=== PATIENT | male | born 1955 | race African-American/Black ===

== ENCOUNTER 2019-03-13 15:34 | Inpatient (IN) | payer SELFPAY ==
[2019-03-13 15:55] VITALS: BMI 27.1
--- NOTE | 2019-03-13 15:55 | PDOC ---
Rapid Medical Evaluation Chief Complaint: Urinary Problem Time Seen by Provider: 03/13/19 15:47 Medical Evaluation: 03/13/19 15:52 I have performed a brief in-person evaluation of this patient. The patient presents with a chief complaint of: h/o HTN and HPL present with complains of 1 week h/o polyuria and polydyspsia with worsening vision. Patient report has not been taking BP meds for months due [place] Pertinent physical exam findings: A&O x 3 in NAD. SINA B/L I have ordered the following: CBC,CMP, fingerstick The patient will proceed to the ED for further evaluation. Discharge Disposition - Diagnosis Polyuria - Discharge Dispostion Condition at time of disposition: Stable - Referrals - Patient Instructions - Post Discharge Activity
[2019-03-13 16:16] LABS: BASO % 0.6 % (0-2.0); EOS % 0.8 % (0-4.5); HEMATOCRIT 46.6 % (35.4-49); HEMOGLOBIN 15.7 GM/dL (11.7-16.9); LYMPH % 17.7 % (8-40); MCH 31.2 pg (25.7-33.7); MCHC 33.7 g/dl (32.0-35.9); MEAN CELL VOLUME 92.6 fl (80-96); MEAN PLT VOLUME 10.7 fl (7.5-11.1); MONO % 5.9 % (3.8-10.2); PLATELET COUNT 241 K/MM3 (134-434); RBC 5.03 M/mm3 (4.00-5.60); RDW 12.9 % (11.9-15.9); URINE APPEARANCE CLEAR; URINE BILIRUBIN NEGATIVE (NEGATIVE); URINE COLOR YELLOW; URINE GLUCOSE (UA) 3+ (NEGATIVE); URINE KETONE TRACE (NEGATIVE); URINE LEUK ESTERASE NEGATIVE (NEGATIVE); URINE NITRITE NEGATIVE (NEGATIVE); URINE PROTEIN NEGATIVE (NEGATIVE); URINE UROBILINOGEN 0.2 mg/dL (0.2-1.0); WHITE BLOOD COUNT 6.7 K/mm3 (4.0-10.0)
[2019-03-13 17:03] LABS: ALBUMIN 3.9 g/dl (3.4-5.0); BILIRUBIN,TOTAL 0.3 mg/dL (0.2-1); BLOOD UREA NITROGEN 19.3 mg/dL (7-18); CALCIUM 8.9 mg/dL (8.5-10.1); CREATININE 1.6 mg/dL (0.55-1.3); POTASSIUM 4.5 mmol/L (3.5-5.1); TOT PROT 7.4 g/dl (6.4-8.2)
[2019-03-13] MEDS ORDERED: SODIUM CHLORIDE 1,000 ML IV STA ×3 (17:12→18:34)
[2019-03-13 17:14] LABS: PLATELET ESTIMATE ADEQUATE
[2019-03-13] MEDS ORDERED: INSULIN REGULAR HUMAN 100 UNITS/ML *VIAL IVPUSH ONE (17:14)
--- NOTE | 2019-03-13 17:23 | PDOC ---
History of Present Illness - General Chief Complaint: Urinary Problem Stated Complaint: EYE PROBLEM Time Seen by Provider: 03/13/19 15:47 History Source: Patient - History of Present Illness Timing/Duration: other Past History - Past Medical History Allergies/Adverse Reactions: Allergies Allergy/AdvReac Type Severity Reaction Status Date / Time No Known Allergies Allergy Verified 03/13/19 15:54 COPD: No HTN: Yes Hypercholesterolemia: Yes - Immunization History Immunization Up to Date: Yes - Psycho Social/Smoking Cessation Hx Smoking History: Never smoked Have you smoked in the past 12 months: No Information on smoking cessation initiated: No Hx Alcohol Use: Yes (SOCIAL) Drug/Substance Use Hx: No Review of Systems - Review of Systems Constitutional: No: Chills, Fever HEENTM: Yes: Blurred Vision. No: Eye Pain Respiratory: No: Shortness of Breath Cardiac (ROS): No: Chest Pain ABD/GI: No: Nausea, Vomiting, Abdominal cramping Endocrine: Yes: Increased Thirst, Increased Urine *Physical Exam - Vital Signs Last Vital Signs Temp Pulse Resp BP Pulse Ox 98.2 F 103 H 17 129/96 98 03/13/19 15:46 03/13/19 15:46 03/13/19 15:46 03/13/19 15:46 03/13/19 15:46 - Physical Exam General Appearance: Yes: Appropriately Dressed. No: Apparent Distress HEENT: positive: Normal Voice Neck: positive: Supple Respiratory/Chest: positive: Lungs Clear, Normal Breath Sounds. negative: Respiratory Distress Cardiovascular: positive: Regular Rate, S1, S2 Gastrointestinal/Abdominal: positive: Soft. negative: Tender Musculoskeletal: negative: CVA Tenderness Integumentary: positive: Dry, Warm Neurologic: positive: Fully Oriented, Alert, Normal Mood/Affect ED Treatment Course - LABORATORY CBC & Chemistry Diagram: 03/13/19 16:05 03/13/19 16:05 - ADDITIONAL ORDERS Additional order review: Laboratory Results 03/13/19 03/13/19 16:05 16:05 Sodium 128 L Potassium 4.5 Chloride 92 L Carbon Dioxide 22 Anion Gap 14 BUN 19.3 H Creatinine 1.6 H Est GFR (CKD-EPI)AfAm 53.10 Est GFR (CKD-EPI)NonAf 45.82 Random Glucose 843 H* Calcium 8.9 Total Bilirubin 0.3 AST 32 ALT 68 H Alkaline Phosphatase 195 H Total Protein 7.4 Albumin 3.9 Urine Color Yellow Urine Appearance Clear Urine pH 5.0 Ur Specific [place] 1.035 Urine Protein Negative Urine Glucose (UA) 3+ H Urine Ketones Trace H Urine Blood Negative Urine Nitrite Negative Urine Bilirubin Negative Urine Urobilinogen 0.2 Ur Leukocyte Esterase Negative 03/13/19 16:05 RBC 5.03 MCV 92.6 MCHC 33.7 RDW 12.9 MPV 10.7 Neutrophils % 75.0 Lymphocytes % 17.7 Monocytes % 5.9 Eosinophils % 0.8 Basophils % 0.6 Medical Decision Making - Medical Decision Making 03/13/19 17:18 63-year-old male, h/o possible hypertension but not currently on meds, here with worsening blurry vision with polydipsia and polyuria that started 2 weeks ago. Patient recently moved to [facility] and states symptoms started after he got here around [facility]. No abd pain, SOB, f/c. Patient states prior to moving in with his mother several years ago he was eating healthy but not currently See exam New onset DM BG >800 w/ NA 128 and Cr 1.6, no old numbers to compare, no gap -IVF -insulin -admit 03/13/19 18:53 Case discussed with admitting team and patient admitted Discharge - Discharge Information Problems reviewed: Yes Clinical Impression/Diagnosis: Diabetes mellitus, new onset, Blurry vision, Polydipsia, Polyuria, Creatinine elevation Condition: Fair - Admission Yes - Follow up/Referral - Patient Discharge Instructions - Post Discharge Activity
--- NOTE | 2019-03-13 19:10 | PN ---
Teaching Attending Note Name of Resident: Lonnie Prabhakar ATTENDING PHYSICIAN STATEMENT I saw and evaluated the patient. I reviewed the resident's note and discussed the case with the resident. I agree with the resident's findings and plan as documented. SUBJECTIVE: Patient is a 63 year old man with PMH of Hypertension (not on medication) presenting with worsening blurry vision, polydipsia and polyuria that started 2 weeks ago. Patient recently moved to [facility] and states symptoms started after he got here [facility]. Denies abdominal pain, fever, chills, nausea, vomiting, chest pain, headache, diarrhea or dysuria. Patient states that prior to moving in with his mother several years ago he was eating healthy but not currently. Denies tobacco, alcohol or illicit drug use. No sick contacts. Has FH of prediabetes, HTN and prostate cancer. OBJECTIVE: Alert Vital Signs Period Temp Pulse Resp BP Sys/Nicholson Pulse Ox Last 24 Hr 98.2 F 103 17 129/96 98 HEENT: No Jaundice, eye redness or discharge, PERRLA, EOMI. Normocephalic, atraumatic. External ears are normal and hearing is grossly intact. No nasal discharge. Neck: Supple, nontender. No palpable adenopathy or thyromegaly. No JVD Chest: Good effort. Clear to auscultation and percussion. Heart: Regular. No S3, rub or murmur Abdomen: Not distended, soft, nontender and no HSM. No rebound or guarding. Normal bowel sounds. Ext: Peripheral pulses intact. No leg edema. Skin: Warm and dry. No petechiae, rash or ecchymosis. Neuro: Alert. Oriented x3. CN 2-12 grossly intact. Sensation grossly intact in all four extremities and DTR are symmetric. Psych: Appropriate mood and affect. Good insight. Current Medications Generic Name Dose Route Start Last Admin Trade Name Freq PRN Reason Stop Dose Admin Heparin Sodium (Porcine) 5,000 unit 03/14/19 02:00 Heparin - SQ Q8H-IV FAWN Sodium Chloride 1,000 mls @ 100 mls/hr 03/13/19 19:30 03/13/19 19:34 Normal Saline - IV 100 mls/hr ASDIR FAWN Administration Insulin Aspart 0 vial 03/13/19 22:00 Novolog Vial Sliding Scale - SQ ACHS FAWN Protocol Insulin Detemir 18 units 03/13/19 22:00 Levemir Vial SQ HS [facility] Abnormal Lab Results 03/13/19 03/13/19 16:05 16:05 Sodium 128 L Chloride 92 L BUN 19.3 H Creatinine 1.6 H Random Glucose 843 H* ALT 68 H Alkaline Phosphatase 195 H Beta-Hydroxybutyrate 18.9 H Urine Glucose (UA) 3+ H Urine Ketones Trace H ASSESSMENT AND PLAN: 1. New onset DM - Getting insulin and IV NS. Hyponatremia likely due to hyperglycemia. Will monitor serum sodium q 6 hours to avoid a rapid rise; give IV and PO KCL. Will implement sliding scale insulin regimen. By tomorrow will start metformin 500 mg and Insulin glargine. Elevated LFTs are unexplained. Will get RUQ sonogram, HbA1c, hepatitis profile, fasting lipids, TSH and urine albumin/creatinine ratio. Provide comprehensive diabetes care with patient teaching and counseling about the importance of adherence to prescribed diabetes regimen, euglycemia, eye care and foot care. EKG shows NSR, LAD, IRBBB and LVH. 2. MARCELINO - Likely due to dehydration from osmotic diuresis. Will hydrate, monitor urine output and get kidney sonogram if azotemia persists. Avoid nephrotoxic agents such as NSAIDS, aminoglycosides, contrast dyes and certain Alternative medicine products. 3. DVT prophylaxis - Heparin 5000u sq tid. 4. Advance directives - Full code
--- NOTE | 2019-03-13 19:19 | HP ---
CHIEF COMPLAINT: blurry vision PCP: None HISTORY OF PRESENT ILLNESS: 63 y/o male PMH HTN, HLD, arthritis, and GERD c/o 2 weeks of lethargy, polyuria , polydipsia, and polyphagia. 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 The symptom that brought him to the hospital is blurry vision. The pt sought assessment from replenishment specialist who observed rx change from existing ~ 1 to ~3 for corrective lenses. He then sought help from an opthalmologist that recommended immediate visit to ED. Additional symptoms include loss of taste; he says food does not taste as good. He denies SOB, CP, abd pain, and joint pain. He denies erectile dysfunction and still has morning/organic erections. Pt says depression comes and goes, has lower energy, increased appetite but he denies sleep changes, interest changes, feelings of guilt, concentration changes , psychomotor agitation, and suicidality. He denies NVFD, constipation, and chills. He has not been recently ill, has sick contacts, or traveled outside of his relocation. ER course was notable for: (1) Blood sugar 843 (2) IVF and insulin administered (3) NA 128 and Cr 1.6 Recent Travel: Denies PAST MEDICAL HISTORY: HTN, HLD, arthritis, and GERD PAST SURGICAL HISTORY: Tonsilectomy (1976) Family history: Father - preDM, prostate CA, HTN; mother - HTN; grandmother - breast CA Social History: Smokin years in youth 3 cig/day. Cessation in 1990. Alcohol: Social Drugs: Ceased. 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 Lives/cares for mother in private home in [place]. Dog at home, "Rae." Formerly from [place] prior to [facility]. Sexual history: Homosexual male, not sexually active for 15 years by choice ( refuses to participate in unprotected MSM, which he endorses is more common in the community in recent hx). Gonorrhea tx in 1982. Allergies: No Known Allergies Allergy (Verified 03/13/19 15:54) HOME MEDICATIONS: [facility] reported as home [facility] in [place] but no active rx listed. Pt reports taking lipitor and BP meds. REVIEW OF SYSTEMS CONSTITUTIONAL: Absent: fever, chills, diaphoresis, generalized weakness, malaise, loss of appetite, weight change HEENT: Absent: rhinorrhea, nasal congestion, throat pain, throat swelling, difficulty swallowing, mouth swelling, ear pain, eye pain, visual changes CARDIOVASCULAR: Absent: chest pain, syncope, palpitations, irregular heart rate, lightheadedness , peripheral edema RESPIRATORY: Absent: cough, shortness of breath, dyspnea with exertion, orthopnea, wheezing, stridor, hemoptysis GASTROINTESTINAL: Absent: abdominal pain, abdominal distension, nausea, vomiting, diarrhea, constipation, melena, hematochezia GENITOURINARY: Absent: dysuria, frequency, urgency, hesitancy, hematuria, flank pain, genital pain MUSCULOSKELETAL: Absent: myalgia, arthralgia, joint swelling, back pain, neck pain SKIN: Absent: rash, itching, pallor HEMATOLOGIC/IMMUNOLOGIC: Absent: easy bleeding, easy bruising, lymphadenopathy, frequent infections ENDOCRINE: Absent: unexplained weight gain, unexplained weight loss, heat intolerance, cold intolerance NEUROLOGIC: Absent: headache, focal weakness or paresthesias, dizziness, unsteady gait, seizure, mental status changes, bladder or bowel incontinence PSYCHIATRIC: Absent: anxiety, depression, suicidal or homicidal ideation, hallucinations. PHYSICAL EXAMINATION Vital Signs - 24 hr 03/13/19 15:46 Temperature 98.2 F Pulse Rate 103 H Respiratory 17 Rate Blood Pressure 129/96 O2 Sat by Pulse 98 Oximetry (%) GENERAL: AOx3, in no acute distress. HEAD: NCAT, acanthosis nigricans on posterior neck, x2 earrings on LEFT ear EYES: SINA, EOMI, conjunctiva clear. Opthalmic examination + finding of white lesion in RIGHT eye upper medial quadrant. ENT: Ears normal, nares patent, oropharynx clear without exudates. Moist mucous membranes. NECK: Normal range of motion, supple without lymphadenopathy, JVD, or masses. LUNGS: CTAB. No wheezes, and no crackles. No accessory muscle use. HEART: RRR s1 s2 ABDOMEN: Soft, BS present in all 4 quadrants, non-distended, no JVD, MUSCULOSKELETAL: No bony deformities or tenderness. No CVA tenderness. UPPER EXTREMITIES: RUE arthirtic wrist. 2+ pulses, warm, well-perfused. No cyanosis. No clubbing. No peripheral edema. LOWER EXTREMITIES: 2+ pulses, warm, well-perfused. No calf tenderness. No peripheral edema. NEUROLOGICAL: No focal deficits. Cranial nerves II-XII intact. Normal speech. Gait not appreciated. PSYCHIATRIC: Cooperative. Good eye contact. Appropriate mood and affect. SKIN: Warm, dry, normal turgor, no rashes or lesions noted, normal capillary refill. Laboratory Results - last 24 hr 03/13/19 03/13/19 03/13/19 16:05 16:05 16:05 WBC 6.7 RBC 5.03 Hgb 15.7 Hct 46.6 MCV 92.6 MCH 31.2 MCHC 33.7 RDW 12.9 Plt Count 241 MPV 10.7 Absolute Neuts (auto) 5.0 Neutrophils % 75.0 Lymphocytes % 17.7 Monocytes % 5.9 Eosinophils % 0.8 Basophils % 0.6 Nucleated RBC % 0 Platelet Estimate Adequate Platelet Comment Large platelets Sodium 128 L Potassium 4.5 Chloride 92 L Carbon Dioxide 22 Anion Gap 14 BUN 19.3 H Creatinine 1.6 H Est GFR (CKD-EPI)AfAm 53.10 Est GFR (CKD-EPI)NonAf 45.82 POC Glucometer Random Glucose 843 H* Calcium 8.9 Total Bilirubin 0.3 AST 32 ALT 68 H Alkaline Phosphatase 195 H Total Protein 7.4 Albumin 3.9 Beta-Hydroxybutyrate 18.9 H Urine Color Yellow Urine Appearance Clear Urine pH 5.0 Ur Specific [place] 1.035 Urine Protein Negative Urine Glucose (UA) 3+ H Urine Ketones Trace H Urine Blood Negative Urine Nitrite Negative Urine Bilirubin Negative Urine Urobilinogen 0.2 Ur Leukocyte Esterase Negative 03/13/19 18:31 WBC RBC Hgb Hct MCV MCH MCHC RDW Plt Count MPV Absolute Neuts (auto) Neutrophils % Lymphocytes % Monocytes % Eosinophils % Basophils % Nucleated RBC % Platelet Estimate Platelet Comment Sodium Potassium Chloride Carbon Dioxide Anion Gap BUN Creatinine Est GFR (CKD-EPI)AfAm Est GFR (CKD-EPI)NonAf POC Glucometer > 600 Random Glucose Calcium Total Bilirubin AST ALT Alkaline Phosphatase Total Protein Albumin Beta-Hydroxybutyrate Urine Color Urine Appearance Urine pH Ur Specific [place] Urine Protein Urine Glucose (UA) Urine Ketones Urine Blood Urine Nitrite Urine Bilirubin Urine Urobilinogen Ur Leukocyte Esterase ASSESSMENT/PLAN: 63 y/o male PMH HTN, HLD, arthritis, and GERD c/o 2 weeks of lethargy, polyuria , polydipsia, and polyphagia consistent with hyperosmolar hyperglycemic state ( HHS). # HHS - 800+ blood sugar - ISS overnight and tomorrow/out-pt Metformin 5000 mg PO QD and insulin glargine - Hba1c <3.5 - Consult endocrinology - Correct fluid/electrolyte abnormality. IV and PO KCL - Consider starting Metformin 500 mg PO BID once kidney function normalizes # MARCELINO - Acute volume loss - Hydrate - Monitor I/O - Renal US if azotemia persists # Transaminitis - RUQ US - Hepatitis profile - Fasting lipids - TSH - Urine albumin/creatinine ratio # Hyponatremia - Likely due to hyperglycemia - NS administered at first and then stopped after 6 hours # HTN - Cont. curent home regimen # HLD - Cont. curent home regimen #F/E/N - PO as fluids were stopped after first 6 hours - Cont. to monitor - Diabetic low sodium diet # DVT prophylaxis - Heparin SQ # Disposition - Admit to med/surg Lonnie Prabhakar MD ATTENDING PHYSICIAN STATEMENT I saw and evaluated the patient. I reviewed the resident's note and discussed the case with the resident. I agree with the resident's findings and plan as documented. SUBJECTIVE: OBJECTIVE: ASSESSMENT AND PLAN:
[2019-03-13] MEDS ORDERED: SODIUM CHLORIDE 1,000 ML IV SCH (19:30)
[2019-03-13] MEDS ORDERED: INSULIN (LEVEMIR) 100 UNITS/ML UNITS SQ SCH (22:00)
[2019-03-13] MEDS ORDERED: HEPARIN NA (PORCINE) 5,000 UNITS/ML 1ML VIAL ONE (22:21)
[2019-03-13] MEDS: HEPARIN NA (PORCINE) 5,000 UNITS/ML 1ML VIAL SQ SCH (22:44)
[2019-03-13] MEDS: INSULIN SLIDING SCALE (NOVOLOG) 1 VIAL SQ SCH (22:59)
[2019-03-14 02:13] LABS: BLOOD UREA NITROGEN 14.2 mg/dL (7-18); CREATININE 1.1 mg/dL (0.55-1.3); POTASSIUM 3.9 mmol/L (3.5-5.1)
[2019-03-14] MEDS ORDERED: POTASSIUM CHLORIDE TABS 20 MEQ TABLET.ER (FP) PO ONE ×2 (02:55→06:46)
[2019-03-14] MEDS ORDERED: HEPARIN NA (PORCINE) 5,000 UNITS/ML 1ML VIAL ONE (06:46)
[2019-03-14] MEDS ORDERED: metFORMIN HCL 500 MG TABLET (FP) PO SCH ×2 (07:00→16:30)
[2019-03-14] MEDS: HEPARIN NA (PORCINE) 5,000 UNITS/ML 1ML VIAL SQ SCH (07:12)
[2019-03-14 07:37] LABS: HEMATOCRIT 39.5 % (35.4-49); MCH 32.2 pg (25.7-33.7); MCHC 35.4 g/dl (32.0-35.9); MEAN PLT VOLUME 10.6 fl (7.5-11.1); PLATELET COUNT 203 K/MM3 (134-434); RBC 4.34 M/mm3 (4.00-5.60); RDW 12.8 % (11.9-15.9); WHITE BLOOD COUNT 4.6 K/mm3 (4.0-10.0)
[2019-03-14] MEDS: INSULIN SLIDING SCALE (NOVOLOG) 1 VIAL SQ SCH ×3 (07:57→17:08)
[2019-03-14 07:59] VITALS: TEMP 98.1
[2019-03-14 08:45] LABS: BLOOD UREA NITROGEN 12.6 mg/dL (7-18); CALCIUM 8.3 mg/dL (8.5-10.1); CREATININE 0.9 mg/dL (0.55-1.3); MAGNESIUM 2.1 mg/dL (1.8-2.4); PHOSPHOROUS 3.2 mg/dL (2.5-4.9); POTASSIUM 4.1 mmol/L (3.5-5.1)
--- NOTE | 2019-03-14 10:42 | EKG ---
Test Reason : Blood Pressure : / mmHG Vent. Rate : 084 BPM Atrial Rate : 084 BPM P-R Int : 160 ms QRS Dur : 102 ms QT Int : 388 ms P-R-T Axes : 050 -39 021 degrees QTc Int : 458 ms NORMAL SINUS RHYTHM LEFT AXIS DEVIATION INCOMPLETE RIGHT BUNDLE BRANCH BLOCK MINIMAL VOLTAGE CRITERIA FOR LVH, MAY BE NORMAL VARIANT ABNORMAL ECG NO PREVIOUS ECGS AVAILABLE Confirmed by MARIS ADAM, SHYAM ([id number]) on 03/14/2019 10:41:23 AM Referred By: Confirmed By:SHYAM POLLOCK MD
--- NOTE | 2019-03-14 11:50 | PN ---
Progress Note (short form) - Note Progress Note: Hospitalist Medicine States that he came in since he had blurry vision and was drinking "tons of sugar" since he was thirsty. Went through many bottles of iced tea, in different flavors, all sugary. Also w/ increased urination "couldn't stop peeing." Has been residing in [facility] for the last 2 weeks Vitals 03/14/19 07:58 Temperature 98.1 F Pulse Rate [ 84 Right Radial] Respiratory 18 Rate Blood Pressure 137/93 [Right Arm] O2 Sat by Pulse 98 Oximetry (%) Physical Exam GENERAL: pleasant. talkative, in NAD HEENT: NCAT, PERRLA. intact visual field exam NECK: Normal range of motion, supple LUNGS: CTA B/l. No wheezes, and no crackles. No accessory muscle use. HEART: S1, S2 RRR. no r/m/g ABDOMEN: Soft, nontender, nondistended. LOWER EXTREMITIES: 2+ pt pulses, warm, well-perfused.No peripheral edema. NEUROLOGICAL: No focal deficits. Cranial nerves II-XII intact. Normal speech. Laboratory Tests 03/13/19 03/13/19 03/13/19 16:05 23:08 23:08 WBC Hgb Hct Plt Count Sodium Potassium Chloride Carbon Dioxide BUN Creatinine Random Glucose Hemoglobin A1c % Triglycerides Cholesterol Total LDL Cholesterol HDL Cholesterol TSH PTH Intact Urine pH 5.0 Ur Specific [place] 1.035 Urine Protein Negative Urine Glucose (UA) 3+ H Urine Ketones Trace H Urine Nitrite Negative Urine Bilirubin Negative Urine Urobilinogen 0.2 Ur Leukocyte Esterase Negative Ur Random Creatinine 16.0 L Ur Random Sodium 23 L Ur Random Potassium < 9.0 L Ur Random Chloride 16 L Ur Random Urea Nitrogn Hep A IgM Ab Confirm Hep Bs Antigen Hep B Core IgM Ab Hepatitis C Ab (EIA) 03/13/19 03/14/19 03/14/19 23:08 07:00 07:00 WBC 4.6 Hgb 14.0 Hct 39.5 D Plt Count 203 Sodium 137 Potassium 4.1 Chloride 105 Carbon Dioxide 24 BUN 12.6 Creatinine 0.9 Random Glucose 310 H Hemoglobin A1c % Triglycerides 229 H Cholesterol 174 Total LDL Cholesterol 102 H HDL Cholesterol 34 L TSH 0.97 PTH Intact Urine pH Ur Specific [place] Urine Protein Urine Glucose (UA) Urine Ketones Urine Nitrite Urine Bilirubin Urine Urobilinogen Ur Leukocyte Esterase Ur Random Creatinine Ur Random Sodium Ur Random Potassium Ur Random Chloride Ur Random Urea Nitrogn 155 L Hep A IgM Ab Confirm Hep Bs Antigen Hep B Core IgM Ab Hepatitis C Ab (EIA) 03/14/19 03/14/19 03/14/19 07:00 07:00 07:00 WBC Hgb Hct Plt Count Sodium Potassium Chloride Carbon Dioxide BUN Creatinine Random Glucose Hemoglobin A1c % 12.4 H Triglycerides Cholesterol Total LDL Cholesterol HDL Cholesterol TSH PTH Intact Pending Urine pH Ur Specific [place] Urine Protein Urine Glucose (UA) Urine Ketones Urine Nitrite Urine Bilirubin Urine Urobilinogen Ur Leukocyte Esterase Ur Random Creatinine Ur Random Sodium Ur Random Potassium Ur Random Chloride Ur Random Urea Nitrogn Hep A IgM Ab Confirm Pending Hep Bs Antigen Pending Hep B Core IgM Ab Pending Hepatitis C Ab (EIA) Pending Microbiology 03/13/19: Urine cx: pending Imaging 03/13/19: Abd sono: fatty liver dz Assessment/plan 63 y/o male PMH HTN, HLD, arthritis, and GERD c/o 2 weeks of lethargy, polyuria , polydipsia, and polyphagia consistent with hyperglycemia. # Hyperglycemia, new dx DM2 -800+ blood sugar on arrival, no AG, serum osm WNL -started on ISS, BGM ACHS. will start on levemir 8u sq HS, and uptitrate based on daily insulin use -repeat a1c ~12 -will need metformin on d/c -dietary consulted # Hyponatremia - resolved - Likely initially due to hyperglycemia - resp well to IV NS #F/E/N no need for IVF at this time continue to follow lytes diabetic diet #PPX DVT: early ambulation #Dispo discharge
[2019-03-14 12:14] VITALS: BP 127/94; PULSE 89
[2019-03-14 12:39] LABS: BLOOD UREA NITROGEN 11.1 mg/dL (7-18); CALCIUM 8.6 mg/dL (8.5-10.1); POTASSIUM 4.2 mmol/L (3.5-5.1)
--- NOTE | 2019-03-14 17:20 | DS ---
Physical Exam: SUBJECTIVE: Patient seen and examined at bedside. Without complaint, sitting and eating meal in solarium. OBJECTIVE: Vital Signs Period Temp Pulse Resp BP Sys/Nicholson Pulse Ox Last 24 Hr 98.1 F-98.6 F 63-90 18-20 114-147/84-105 97-100 Physical Exam GENERAL: pleasant. talkative, in NAD HEENT: NCAT, PERRLA. intact visual field exam NECK: Normal range of motion, supple LUNGS: CTA B/l. No wheezes, and no crackles. No accessory muscle use. HEART: S1, S2 RRR. no r/m/g ABDOMEN: Soft, nontender, nondistended. LOWER EXTREMITIES: 2+ pt pulses, warm, well-perfused.No peripheral edema. NEUROLOGICAL: No focal deficits. Cranial nerves II-XII intact. Normal speech. LABS 03/13/19 03/14/19 16:05 07:00 WBC 6.7 4.6 RBC 4.34 Hgb 15.7 14.0 Hct 46.6 39.5 D MCV 91.0 Plt Count 241 203 03/14/19 03/14/19 03/14/19 01:26 07:00 07:00 Sodium 140 137 Potassium 3.9 4.1 Chloride 108 H 105 Carbon Dioxide 26 24 BUN 14.2 12.6 Creatinine 1.1 0.9 Random Glucose 254 H 310 H Hemoglobin A1c % 12.4 H 03/14/19 12:00 Sodium 136 Potassium 4.2 Chloride 103 Carbon Dioxide 25 BUN 11.1 Creatinine 1.0 Random Glucose 277 H Hemoglobin A1c % 03/13/19 03/13/19 03/13/19 16:05 23:08 23:08 Urine Color Yellow Urine Appearance Clear Urine pH 5.0 Ur Specific [place] 1.035 Urine Protein Negative Urine Glucose (UA) 3+ H Urine Ketones Trace H Urine Blood Negative Urine Nitrite Negative Urine Bilirubin Negative Urine Urobilinogen 0.2 Ur Leukocyte Esterase Negative Ur Random Creatinine 16.0 L Ur Random Sodium 23 L Ur Random Potassium < 9.0 L Ur Random Chloride 16 L Ur Random Urea Nitrogn Hep A IgM Ab Confirm Hep Bs Antigen Hep B Core IgM Ab Hepatitis C Ab (EIA) 03/13/19 03/14/19 23:08 07:00 Urine Color Urine Appearance Urine pH Ur Specific [place] Urine Protein Urine Glucose (UA) Urine Ketones Urine Blood Urine Nitrite Urine Bilirubin Urine Urobilinogen Ur Leukocyte Esterase Ur Random Creatinine Ur Random Sodium Ur Random Potassium Ur Random Chloride Ur Random Urea Nitrogn 155 L Hep A IgM Ab Confirm Pending Hep Bs Antigen Pending Hep B Core IgM Ab Pending Hepatitis C Ab (EIA) Pending Microbiology 03/13/19: Urine cx: pending Imaging 03/13/19: Abd sono: fatty liver dz 03/13/19: Renal sono: unremarkable. HOSPITAL COURSE: Date of Admission:03/13/19 Date of Discharge: 03/14/19 Admit dx: new DM2, hyperglycemia Assessment/plan 63 y/o male PMH HTN, HLD, arthritis, and GERD c/o 2 weeks of lethargy, polyuria , polydipsia, and polyphagia consistent with hyperglycemia. Found to have newly dx DM2. # Hyperglycemia, new dx DM2 -800+ blood sugar on arrival, no AG, serum osm WNL -started on ISS, BGM ACHS. will start on levemir 8u sq HS, d/c home on -repeat a1c ~12 -also d/c on metformin 1000mg BID -dietary consulted; encouraged nutritional follow-up, diabetic teaching #hx HLD -prescribed statin on d/c # Hyponatremia - resolved - Likely initially due to hyperglycemia - resp well to IV NS #F/E/N no need for IVF at this time continue to follow lytes diabetic diet #PPX DVT: early ambulation #Dispo discharge Pt to follow up in resident clinic, Franck Armando Minutes to complete discharge: 44 Discharge Summary Problems reviewed: Yes Reason For Visit: RECENT ONSET OF DIABETES MELLITUS Current Active Problems Blurry vision (Acute) Creatinine elevation (Acute) Diabetes mellitus, new onset (Acute) Polydipsia (Acute) Polyuria (Acute) Condition: Improved - Instructions Diet, Activity, Other Instructions: YOUR VISIT You came to the hospital because you were feeling You were admitted to the hospital for newly diagnoses diabetes with hyperglycemia. You were NOT in DKA but your A1c was 12%. MEDICATIONS Please take these medications: -Metformin 1000mg BID -Levemir 8 units QD -Lipitor 40mg qHS (please make sure you followup CMP with your primary care) ADDITIONAL CARE Please make an appointment to see a primary care provider 1 week from today. Since you do not currently have one, you can be seen at the [facility] residents clinic located at [address] [place] [address]. Please call to make an appointment. If you would like to continue seeing Dr. Lonnie Prabhakar, please ask for a Tuesday morning appointment. 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 Referrals: Marc Toscano MD [Staff Physician] - (Within 3-5 days; please bring glucose diary.) Harinder Hernández MD [Staff Physician] - Fanny Zhou DPM [Staff Physician] - 1 Month Disposition: HOME - Home Medications Comprehensive Discharge Medication List: Ambulatory Orders Atorvastatin Ca [Lipitor] 40 mg PO DAILY 30 Days tablet 03/14/19 Insulin (Levemir) [Levemir Vial] 8 unit SQ DAILY 30 Days #5 vial 03/14/19 metFORMIN HCL [Glucophage -] 1,000 mg PO BID@0700,1630 60 Days tablet 03/14/19 This patient is new to me today: Yes Date on this admission: 03/14/19 Emergency Visit: No Critical Care patient: No - Discharge Referral Referred to [facility] No
[2019-03-14] MEDS ORDERED: INSULIN (LEVEMIR) 100 UNITS/ML UNITS SQ SCH (22:00)
[2019-03-14] MEDS ORDERED: ATORVASTATIN CA 40 MG TABLET (FP) PO SCH (22:00)
[2019-03-15] MEDS ORDERED: INSULIN (LEVEMIR) 100 UNITS/ML UNITS SQ SCH (07:00)
== END 2019-03-14 18:24 | disposition home or self-care (01) | DRG 420 ==
LOC: JER 15:34 → JERBED 17:44 → J6S 03-14 13:30
PROVIDERS: ADMIT Internal Medicine; ATTEND Internal Medicine
DX: E11.65 Type 2 diabetes mellitus with hyperglycemia (principal); I10 Essential (primary) hypertension; E78.5 Hyperlipidemia, unspecified; R35.8 Other polyuria; H53.8 Other visual disturbances; N17.9 Acute kidney failure, unspecified; E87.1 Hypo-osmolality and hyponatremia; K21.9 Gastro-esophageal reflux disease without esophagitis; K76.0 Fatty (change of) liver, not elsewhere classified
CPT/HCPCS: 36415; 71045-TC-FY; 76705-TC; 76775-TC; 80048; 80053; 80061; 80074; 81003; 82010; 82436; 82565; 82962; 83036; 83605; 83721; 83735; 83930; 83970; 84100; 84133; 84300; 84443; 84540; 85025; 85027; 87086; 93005; 93010; 99285-25; J1644; J7030

== ENCOUNTER 2021-03-14 00:23 | Emergency (ER) | payer OTHER ==
[2021-03-14] MEDS ORDERED: IBUPROFEN 600 MG TABLET (FP) PO ONE (00:58)
[2021-03-14 01:14] VITALS: BP 184/85; PULSE 68; TEMP 97.9; BMI 22.4
== END 2021-03-14 02:10 | disposition home or self-care (01) ==
LOC: JER 00:23
PROC: 2W3DX1Z Immobilization of Left Lower Arm using Splint (ICD-10-PCS; principal; 2021-03-14)
DX: S62.347A Nondisplaced fracture of base of fifth metacarpal bone, left hand, initial encounter for closed fracture (principal); W01.0XXA Fall on same level from slipping, tripping and stumbling without subsequent striking against object, initial encounter; Y93.01 Activity, walking, marching and hiking
CPT/HCPCS: 73130-TC-LT-FY; 99283-25

== ENCOUNTER 2022-11-08 04:14 | Day surgery (SDC) | payer OTHER ==
[2022-11-02 12:45] VITALS: BMI 22.6
[2022-11-08] MEDS ORDERED: MIDAZOLAM HCL 2 MG/2 ML SINGLE DOSE VIAL ONE (10:58)
[2022-11-08 13:04] VITALS: BP 143/95; PULSE 76; RESP 20; TEMP 97.3
== END 2022-11-08 13:34 | disposition home or self-care (01) ==
LOC: JASU-SURG 04:14
PROVIDERS: ATTEND Urology
PROC: 0TF3XZZ Fragmentation in Right Kidney Pelvis, External Approach (ICD-10-PCS; principal; 2022-11-08 11:04)
DX: N20.0 Calculus of kidney (principal)
CPT/HCPCS: 82962

== ENCOUNTER 2023-03-04 04:09 | Day surgery (SDC) | payer OTHER ==
[2023-03-01 17:38] VITALS: BMI 25.1
[2023-03-04] MEDS ORDERED: LIDOCAINE HCL/PF 1% SDV 5ML VIAL ONE (07:26)
[2023-03-04] MEDS ORDERED: DEXAMETHASONE SOD PHOSPHATE 10 MG/1 ML VIAL ONE (07:26)
[2023-03-04] MEDS ORDERED: DEXAMETHASONE SOD PHOSPHATE 10 MG/1 ML VIAL IVPUSH ONE ×2 (08:28→11:46)
[2023-03-04] MEDS ORDERED: LIDOCAINE 1% P/F 10 MG/ML VIAL INF ONE ×2 (08:29→11:46)
[2023-03-04] MEDS ORDERED: IOHEXOL 180 MG/1 ML ML IJ ONE ×2 (08:29→11:46)
[2023-03-04 10:14] VITALS: RESP 18
[2023-03-04] MEDS ORDERED: ACETAMINOPHEN 500 MG TABLET (FP) PO PRN (11:06)
[2023-03-04 13:11] VITALS: BP 133/86; PULSE 77; TEMP 97.9
== END 2023-03-04 12:40 | disposition home or self-care (01) ==
LOC: JASU-SURG 04:09
PROVIDERS: ATTEND Pain Medicine Pain Medicine
PROC: 3E0R3BZ Introduction of Anesthetic Agent into Spinal Canal, Percutaneous Approach (ICD-10-PCS; 2023-03-04)
PROC: 3E0R33Z Introduction of Anti-inflammatory into Spinal Canal, Percutaneous Approach (ICD-10-PCS; principal; 2023-03-04 12:00)
DX: M48.061 Spinal stenosis, lumbar region without neurogenic claudication (principal); M54.16 Radiculopathy, lumbar region
CPT/HCPCS: 76000-TC-FY; J1100

== ENCOUNTER 2023-04-01 04:20 | Day surgery (SDC) | payer OTHER ==
[2023-03-30 09:47] VITALS: BMI 23.7
[~2023-04-01 04:20] MED LIST: BUPIVACAINE HCL/PF 0.75% 10 ML VIAL NR ONE; LIDOCAINE HCL 1% PRESERVATIVE FREE - 30ML VIAL IJ ONE
[2023-04-01] MEDS ORDERED: BUPIVACAINE HCL/PF 0.75% 10 ML VIAL ONE (07:30)
[2023-04-01] MEDS ORDERED: LIDOCAINE HCL/PF 1% SDV 5ML VIAL ONE (07:30)
[2023-04-01] MEDS ORDERED: LIDOCAINE HCL 1% PRESERVATIVE FREE - 30ML VIAL IJ ONE (10:31)
[2023-04-01 11:45] VITALS: BP 138/88; PULSE 70; RESP 18; TEMP 97.3
[2023-04-01] MEDS ORDERED: ACETAMINOPHEN 500 MG TABLET (FP) PO PRN (11:53)
== END 2023-04-01 11:40 | disposition home or self-care (01) ==
LOC: JASU-SURG 04:20
PROVIDERS: ATTEND Pain Medicine Pain Medicine
PROC: 3E0T33Z Introduction of Anti-inflammatory into Peripheral Nerves and Plexi, Percutaneous Approach (ICD-10-PCS; 2023-04-01)
PROC: 3E0T3BZ Introduction of Anesthetic Agent into Peripheral Nerves and Plexi, Percutaneous Approach (ICD-10-PCS; principal; 2023-04-01 10:45)
DX: M47.816 Spondylosis without myelopathy or radiculopathy, lumbar region (principal)
CPT/HCPCS: 76000-TC-FY

== ENCOUNTER 2023-05-24 04:15 | Day surgery (SDC) | payer OTHER ==
[2023-05-19 10:21] VITALS: BMI 24.4
[2023-05-24] MEDS ORDERED: BUPIVACAINE HCL/PF 0.75% 10 ML VIAL ONE (07:37)
[2023-05-24] MEDS ORDERED: LIDOCAINE HCL/PF 1% SDV 5ML VIAL ONE (07:37)
[2023-05-24] MEDS ORDERED: ACETAMINOPHEN 500 MG TABLET (FP) PO PRN (09:42)
[2023-05-24 10:01] VITALS: RESP 18
[2023-05-24] MEDS: BUPIVACAINE HCL/PF 0.75% 10 ML VIAL NR ONE ×2 (10:49→10:54)
[2023-05-24] MEDS: LIDOCAINE 1% P/F 10 MG/ML VIAL INF ONE (10:49)
[2023-05-24 11:19] VITALS: BP 112/69; PULSE 72; TEMP 97.6
== END 2023-05-24 11:49 | disposition home or self-care (01) ==
LOC: JASU-SURG 04:15
PROVIDERS: ATTEND Pain Medicine Pain Medicine
PROC: 3E0T3BZ Introduction of Anesthetic Agent into Peripheral Nerves and Plexi, Percutaneous Approach (ICD-10-PCS; principal; 2023-05-24 11:00)
DX: M47.816 Spondylosis without myelopathy or radiculopathy, lumbar region (principal)
CPT/HCPCS: 76000-TC-FY

== ENCOUNTER 2023-06-07 04:33 | Day surgery (SDC) | payer OTHER ==
[2023-06-03 14:42] VITALS: BMI 23.7
[2023-06-07 08:34] VITALS: TEMP 97.1
[2023-06-07 09:01] VITALS: BP 124/76; PULSE 53; RESP 14
== END 2023-06-07 09:20 | disposition home or self-care (01) ==
LOC: JASU-ENDO 04:33
PROVIDERS: ATTEND Internal Medicine Gastroenterology
PROC: 0DBN8ZX Excision of Sigmoid Colon, Via Natural or Artificial Opening Endoscopic, Diagnostic (ICD-10-PCS; principal; 2023-06-07 08:00)
DX: Z12.11 Encounter for screening for malignant neoplasm of colon (principal); D12.5 Benign neoplasm of sigmoid colon; K62.7 Radiation proctitis
CPT/HCPCS: 82962; 88305-TC

== ENCOUNTER 2023-06-24 05:13 | Day surgery (SDC) | payer OTHER ==
[2023-06-17 14:00] VITALS: BMI 23.0
[~2023-06-24 05:13] MED LIST changes: +ACETAMINOPHEN 500 MG TABLET (FP) PO PRN; -BUPIVACAINE HCL/PF 0.75% 10 ML VIAL NR ONE; -LIDOCAINE HCL 1% PRESERVATIVE FREE - 30ML VIAL IJ ONE
[2023-06-24 11:04] VITALS: RESP 18
[2023-06-24] MEDS: LIDOCAINE HCL 1% PRESERVATIVE FREE - 30ML VIAL IJ ONE (11:52)
[2023-06-24] MEDS: LIDOCAINE HCL/PF 2% SDV 5ML VIAL INF ONE ×2 (12:02)
[2023-06-24] MEDS: BUPIVACAINE HCL/PF 0.75% 10 ML VIAL NR ONE ×2 (12:10)
[2023-06-24 12:26] VITALS: BP 121/82; PULSE 62; TEMP 98.1
== END 2023-06-24 12:33 | disposition home or self-care (01) ==
LOC: JASU-SURG 05:13
PROVIDERS: ATTEND Pain Medicine Pain Medicine
PROC: 015B3ZZ Destruction of Lumbar Nerve, Percutaneous Approach (ICD-10-PCS; principal; 2023-06-24 12:15)
DX: M47.816 Spondylosis without myelopathy or radiculopathy, lumbar region (principal)
CPT/HCPCS: 76000-TC-FY

== ENCOUNTER 2023-07-26 04:21 | Day surgery (SDC) | payer OTHER ==
[2023-07-21 12:21] VITALS: BMI 22.4
[2023-07-26] MEDS ORDERED: LIDOCAINE HCL/PF 1% SDV 5ML VIAL ONE (07:26)
[2023-07-26] MEDS ORDERED: BUPIVACAINE HCL/PF 0.75% 10 ML VIAL ONE (07:26)
[2023-07-26] MEDS ORDERED: DEXAMETHASONE SOD PHOSPHATE 10 MG/1 ML VIAL ONE (07:26)
[2023-07-26] MEDS ORDERED: LIDOCAINE HCL/PF 2% SDV 5ML VIAL ONE (07:31)
[2023-07-26] MEDS: BUPIVACAINE HCL/PF 0.75% 10 ML VIAL NR ONE (11:17)
[2023-07-26] MEDS: LIDOCAINE HCL 1% PRESERVATIVE FREE - 30ML VIAL IJ ONE (11:18)
[2023-07-26] MEDS: LIDOCAINE HCL 2% 100 MG/5 ML DISP.SYRIN NR ONE (11:19)
[2023-07-26 13:00] VITALS: RESP 18
[2023-07-26 13:06] VITALS: BP 124/80; PULSE 64; TEMP 97.4
[2023-07-26] MEDS ORDERED: ACETAMINOPHEN 500 MG TABLET (FP) PO PRN (15:10)
== END 2023-07-26 12:18 | disposition home or self-care (01) ==
LOC: JASU-SURG 04:21
PROVIDERS: ATTEND Pain Medicine Pain Medicine
PROC: 015B3ZZ Destruction of Lumbar Nerve, Percutaneous Approach (ICD-10-PCS; principal; 2023-07-26 11:30)
DX: M47.816 Spondylosis without myelopathy or radiculopathy, lumbar region (principal)
CPT/HCPCS: 76000-TC-FY; J1100

== ENCOUNTER 2023-09-23 04:07 | Day surgery (SDC) | payer OTHER ==
[2023-09-19 14:22] VITALS: BMI 23.7
[2023-09-23] MEDS ORDERED: BUPIVACAINE HCL/PF 0.5% (5MG/ML) 10 ML VIAL ONE (07:25)
[2023-09-23] MEDS ORDERED: LIDOCAINE HCL/PF 1% SDV 5ML VIAL ONE (07:25)
[2023-09-23] MEDS ORDERED: TRIAMCINOLONE ACET 40MG/1ML VIAL ONE (07:25)
[2023-09-23] MEDS: LIDOCAINE HCL 1% PRESERVATIVE FREE - 30ML VIAL IJ ONE (10:29)
[2023-09-23] MEDS: BUPIVACAINE HCL/PF 0.5% (5 MG/ML) 30 ML VIAL IJ ONE (10:30)
[2023-09-23] MEDS: TRIAMCINOLONE ACET 40MG/1ML VIAL IM ONE (10:31)
[2023-09-23] MEDS: IOHEXOL 180 MG/1 ML ML IJ ONE (10:31)
[2023-09-23 10:49] VITALS: BP 120/79; PULSE 57; RESP 18; TEMP 98.3
[2023-09-23] MEDS ORDERED: ACETAMINOPHEN 500 MG TABLET (FP) PO PRN (14:18)
== END 2023-09-23 11:06 | disposition home or self-care (01) ==
LOC: JASU-SURG 04:07
PROVIDERS: ATTEND Pain Medicine Pain Medicine
PROC: 3E0U3BZ Introduction of Anesthetic Agent into Joints, Percutaneous Approach (ICD-10-PCS; 2023-09-23)
PROC: 3E0U33Z Introduction of Anti-inflammatory into Joints, Percutaneous Approach (ICD-10-PCS; principal; 2023-09-23 08:30)
DX: M53.3 Sacrococcygeal disorders, not elsewhere classified (principal)
CPT/HCPCS: 76000-TC-FY